=== PATIENT | male | born 1980 | race Caucasian/White ===

== ENCOUNTER 2017-03-16 18:00 | Emergency (ER) | payer SELFPAY ==
[~2017-03-16] VITALS: Ht 170.2 cm; Wt 65.8 kg
--- NOTE | 2017-03-16 18:00 | NUR ---
Arrived in custody of MADIE for ok to book after being found asleep in car with heroin next to him. Patient is now fully awake, alert and oriented, somewhat hostile to receiving medical treatement. Patient to ER bed 1 to gown for evaluation. Side rails up. Assumed care of patient.
[2017-03-16 18:02] VITALS: BP_SYST 123
--- NOTE | 2017-03-16 18:05 | NUR ---
ER Dr. Duarte at bedside examining patient.
--- NOTE | 2017-03-16 18:14 | NUR ---
Patient given verbal discharge instructions and verbalizes understanding. [employer] officer Serge Burgess # [id number] given written discharge instructions ER MD discussed with patient the results and treatment provided. Patient in stable condition. ID arm band removed. Patient educated on pain management and to follow up with PMD. Pain Scale 0/10. Opportunity for questions provided and answered.
== END 2017-03-16 18:15 ==
LOC: SED 18:00
DX: F11.10 Opioid abuse, uncomplicated (principal)
CPT/HCPCS: 99283